=== PATIENT | female | born 1995 | race Hispanic/Latino ===

== ENCOUNTER 2021-04-02 20:31 | Emergency (ER) | payer OTHER ==
[~2021-04-02] VITALS: Ht 154.9 cm; Wt 66.2 kg
[2021-04-02] MEDS ORDERED: MUCINEX DM ER1 EACH PO (20:44)
== END 2021-04-02 21:00 | disposition home or self-care (01) ==
LOC: ER 20:42
DX: R50.9 Fever, unspecified (principal); J06.9 Acute upper respiratory infection, unspecified; R05.9 Cough, unspecified
CPT/HCPCS: 99283

== ENCOUNTER 2021-12-17 06:53 | Emergency (ER) | payer OTHER ==
[~2021-12-17] VITALS: Ht 154.9 cm; Wt 66.2 kg
[~2021-12-17 06:53] MED LIST: MUCINEX DM ER1 EACH PO
[2021-12-17] MEDS ORDERED: ONDANSETRON HCL INJ 2MG/ML 2ML 2 MG/ML VIAL IV STA (07:33)
[2021-12-17] MEDS ORDERED: KETOROLAC TROMETHAMINE 30 MG/ML VIAL IV STA (07:33)
[2021-12-17] MEDS ORDERED: SODIUM CHLORIDE 0.9% 1000ML 1,000 ML IV STA (07:33)
[2021-12-17 07:42] LABS: BASOPHILS # (AUTO) 0.1 (0.0-0.1); BASOPHILS % 0.5 % (0.0-1.0); EOSINOPHILS # (AUTO) 0.1 (0.0-0.4); EOSINOPHILS % 1.3 % (0.0-6.0); HEMATOCRIT 43.4 % (34.2-44.1); HEMOGLOBIN 13.8 g/dL (12.0-16.0); LYMPHOCYTES % 37.8 % (18.0-39.1); MEAN CORPUSCULAR HEMOGLOBIN 27.8 pg (28-32); MEAN CORPUSCULAR HGB CONC 31.8 g/dL (31-35); MEAN CORPUSCULAR VOLUME 87.5 fL (81-99); MONOCYTES # (AUTO) 0.7 (0.2-0.8); MONOCYTES % 6.5 % (4.4-11.3); NEUTROPHILS # (AUTO) 5.7 (2.1-6.9); NEUTROPHILS % 53.6 % (38.7-80.0); PLATELET COUNT 182 x10e3/uL (140-360); RED BLOOD COUNT 4.96 x10e6/uL (3.6-5.1); RED CELL DISTRIBUTION WIDTH 14.5 % (11.7-14.4)
[2021-12-17 07:44] LABS: CLARITY,URINE CLOUDY (CLEAR); COLOR,URINE YELLOW (YELLOW); KETONES,URINE NEGATIVE (NEGATIVE); LEUKOCYTE ESTERASE ,URINE NEGATIVE (NEGATIVE); NITRITE,URINE NEGATIVE (NEGATIVE); PROTEIN,URINE DIPSTICK TRACE (NEGATIVE); URINE UROBILINOGEN 1 mg/dL (0.2 - 1)
[2021-12-17] MEDS ORDERED: DIATRIZOATE MEGL/DIATRIZOA SOD 30 ML BTL PO ONE (08:07)
[2021-12-17 08:08] LABS: ALANINE AMINOTRANSFERASE 11 IU/L (0-55); ALBUMIN 4.2 g/dL (3.5-5.0); ALBUMIN/GLOBULIN RATIO 1.1 (0.8-2.0); ALKALINE PHOSPHATASE 91 IU/L (40-150); ANION GAP 15.9 mmol/L (8-16); BLOOD UREA NITROGEN 7 mg/dL (7-26); BUN/CREATININE RATIO 10 (6-25); CALCIUM 8.8 mg/dL (8.4-10.2); CARBON DIOXIDE 24 mmol/L (22-29); CHLORIDE 104 mmol/L (98-107); GLUCOSE 93 mg/dL (74-118); POTASSIUM 3.9 mmol/L (3.5-5.1); RBC,URINE 0-5 /HPF (0-5); SODIUM 140 mmol/L (136-145)
[2021-12-17 08:09] LABS: BACTERIA,URINE FEW /HPF; EPITHELIAL CELLS,URINE MODERATE /LPF
[2021-12-17] MEDS ORDERED: IOPAMIDOL 370 MG/ML 100 ML INFUS..BTL INJ ONE (08:30)
[2021-12-17] MEDS ORDERED: Sodium Chloride 0.9% 50ML Bag ONE (08:30)
[2021-12-17 09:49] VITALS: BP 106/71
== END 2021-12-17 09:51 | disposition home or self-care (01) ==
LOC: ER 06:58
DX: R10.31 Right lower quadrant pain (principal)
CPT/HCPCS: 36415; 74177; 80053; 81001; 85025; 84702; 87086; 99284; J1885; J2405; J7030; Q9963; Q9967

== ENCOUNTER 2022-05-13 07:24 | Emergency (ER) | payer OTHER ==
[~2022-05-13] VITALS: Ht 154.9 cm; Wt 66.2 kg
[2022-05-13] MEDS ORDERED: METHOCARBAMOL500 MG PO (07:37)
== END 2022-05-13 08:29 | disposition home or self-care (01) ==
LOC: ER 07:37
DX: G44.209 Tension-type headache, unspecified, not intractable (principal)
CPT/HCPCS: 99283

== ENCOUNTER 2024-04-08 08:51 | Emergency (ER) | payer SELFPAY ==
[~2024-04-08] VITALS: Ht 154.9 cm; Wt 66.2 kg
[~2024-04-08 08:51] MED LIST changes: +METHOCARBAMOL500 MG PO
[2024-04-08 09:00] VITALS: TEMP 98.6
[2024-04-08] MEDS: SODIUM CHLORIDE 0.9% 1000ML 1,000 ML IV STA (09:29)
[2024-04-08] MEDS: ONDANSETRON HCL INJ 2MG/ML 2ML 2 MG/ML VIAL IV STA (09:29)
[2024-04-08] MEDS: KETOROLAC TROMETHAMINE 30 MG/ML VIAL IV STA (09:32)
[2024-04-08 09:37] LABS: BASOPHILS # (AUTO) 0.1 (0.0-0.1); BASOPHILS % 0.5 % (0.0-1.0); EOSINOPHILS # (AUTO) 0.1 (0.0-0.4); EOSINOPHILS % 1.2 % (0.0-6.0); HEMATOCRIT 43.4 % (34.2-44.1); HEMOGLOBIN 14.1 g/dL (12.0-16.0); LYMPHOCYTES # (AUTO) 2.7 (1.0-3.2); LYMPHOCYTES % 24.5 % (18.0-39.1); MEAN CORPUSCULAR HEMOGLOBIN 28.2 pg (28-32); MEAN CORPUSCULAR HGB CONC 32.5 g/dL (31-35); MEAN CORPUSCULAR VOLUME 86.8 fL (81-99); MONOCYTES # (AUTO) 0.7 (0.2-0.8); NEUTROPHILS # (AUTO) 7.5 (2.1-6.9); NEUTROPHILS % 67.5 % (38.7-80.0); PLATELET COUNT 230 x10e3/uL (140-360); RED CELL DISTRIBUTION WIDTH 15.1 % (11.7-14.4); WHITE BLOOD COUNT 11.08 x10e3/uL (4.8-10.8)
[2024-04-08 09:42] LABS: INR 0.94; PROTHROMBIN TIME 13.2 seconds (11.9-14.5)
[2024-04-08 09:43] LABS: PARTIAL THROMBOPLASTIN TIME 31.5 seconds (23.8-35.5)
[2024-04-08 09:47] LABS: ALANINE AMINOTRANSFERASE 15 IU/L (0-55); ALBUMIN 4.3 g/dL (3.5-5.0); ALBUMIN/GLOBULIN RATIO 1.2 (0.8-2.0); ALKALINE PHOSPHATASE 91 IU/L (40-150); ANION GAP 14.5 mmol/L (8-16); BILIRUBIN,TOTAL 0.6 mg/dL (0.2-1.2); BLOOD UREA NITROGEN 12 mg/dL (7-26); BUN/CREATININE RATIO 18 (6-25); CALCIUM 9.2 mg/dL (8.4-10.2); CARBON DIOXIDE 23 mmol/L (22-29); CHLORIDE 105 mmol/L (98-107); CREATININE, SERUM 0.68 mg/dL (0.57-1.11); EST GLOMERULAR FILTRATION RATE 122 ML/MIN (>=60); GLUCOSE 96 mg/dL (74-118); POTASSIUM 3.5 mmol/L (3.5-5.1); SODIUM 139 mmol/L (136-145)
[2024-04-08 09:59] LABS: CLARITY,URINE SL CLOUDY (CLEAR); COLOR,URINE YELLOW (YELLOW); GLUCOSE, URINE NEGATIVE (NEGATIVE); LEUKOCYTE ESTERASE ,URINE NEGATIVE (NEGATIVE); NITRITE,URINE NEGATIVE (NEGATIVE); PH,URINE 7 (5 - 7); PROTEIN,URINE DIPSTICK TRACE (NEGATIVE)
[2024-04-08 10:00] LABS: BILIRUBIN,URINE NEGATIVE (NEGATIVE); KETONES,URINE NEGATIVE (NEGATIVE); URINE UROBILINOGEN 1 mg/dL (0.2 - 1)
[2024-04-08 10:05] LABS: BACTERIA,URINE MODERATE /HPF; EPITHELIAL CELLS,URINE MANY /LPF
[2024-04-08 11:00] VITALS: PULSE 84; RESP 16; O2SAT 100
[2024-04-08] MEDS ORDERED: ONDANSETRON ODT4 MG PO (11:00)
[2024-04-08] MEDS ORDERED: CEFDINIR300 MG PO (11:00)
== END 2024-04-08 11:15 | disposition home or self-care (01) ==
LOC: ER 09:14
DX: R30.0 Dysuria (principal); N39.0 Urinary tract infection, site not specified; R10.31 Right lower quadrant pain; R11.2 Nausea with vomiting, unspecified; K59.00 Constipation, unspecified
CPT/HCPCS: 36415; 74177; 80053; 81001; 83735; 84702; 85025; 85610; 85730; 99284; J0696; J1885; J2405; J7030; 87086